=== PATIENT | female | born 1985 | race Caucasian/White ===

== ENCOUNTER 2018-11-11 20:46 | Emergency (ER) | payer OTHER ==
[2018-11-11 20:59] VITALS: BP 123/63; PULSE 71; TEMP 98.3; BMI 48.0
--- NOTE | 2018-11-11 22:07 | PDOC ---
History of Present Illness - General Chief Complaint: Pain, Acute Stated Complaint: PAIN Time Seen by Provider: 11/11/18 21:55 - History of Present Illness Initial Comments: 11/11/18 22:03 33-year-old female without comorbidities presents for evaluation of lower back pain times one week with posterior lateral left leg radicular symptoms no loss of bowel bladder function or systemic symptoms Past History - Past Medical History Allergies/Adverse Reactions: Allergies Allergy/AdvReac Type Severity Reaction Status Date / Time No Known Allergies Allergy Verified 11/11/18 20:59 Home Medications: Ambulatory Orders Cyclobenzaprine HCl [Flexeril 10 mg] 10 mg PO HS PRN #10 tablet 11/11/18 Methylprednisolone [Medrol Dose Vinny] 4 mg PO ASDIR #21 tablet 11/11/18 COPD: No - Suicide/Smoking/Psychosocial Hx Smoking History: Never smoked Review of Systems - Review of Systems Constitutional: No: Fever Musculoskeletal: Yes: Back Pain Neurological: Yes: See HPI *Physical Exam - Vital Signs Last Vital Signs Temp Pulse Resp BP Pulse Ox 98.3 F 71 18 123/63 99 11/11/18 20:55 11/11/18 20:55 11/11/18 20:55 11/11/18 20:55 11/11/18 20:55 - Physical Exam Comments: 11/11/18 22:04 Lumbar spine skin color and temperature are normal range of motion is limited. She has 5 out of 5 strength in bilateral lower extremities without gross sensorimotor deficits. Negative straight leg raise test bilaterally. No midline tenderness moderate right and left-sided paralumbar musculature spasm and tenderness thighs and calves are soft and nontender no gross sensorimotor deficits she is neurovascularly intact. Medical Decision Making - Medical Decision Making 11/11/18 22:04 We'll treat lumbar radicular symptoms with Medrol Dosepak and Flexeril and have her follow-up with orthopedic spine surgery I've explained this to her and she is in agreement with the plan. *DC/Admit/Observation/Transfer Diagnosis at time of Disposition: Lumbar radiculopathy - Discharge Dispostion Disposition: HOME Condition at time of disposition: Stable Decision to Admit order: No - Prescriptions Prescriptions: Cyclobenzaprine HCl [Flexeril 10 mg] 10 mg PO HS PRN #10 tablet PRN Reason: Muscle Spasms Methylprednisolone [Medrol Dose Vinny] 4 mg PO ASDIR #21 tablet - Referrals Referrals: Serg Gallegos MD [Primary Care Provider] - Melhcor Jimenez MD [Staff Physician] - - Patient Instructions Printed Discharge Instructions: Lumbar Radiculopathy, DI for Lumbar Radiculopathy Additional Instructions: Regrese a la yanet de emergencias por empeoramiento de los sntomas. Por favor, comienza el paquete de esteroides maana. No tome ningn antiinflamatorio talisha Advil Motrin Aleve o ibuprofeno mientras est en el paquete de esteroides. Tylenol est preeti y se recomienda segn las indicaciones para medicamentos adicionales para el dolor. Los relajantes musculares yunier tableta antes de acostarse y le darn sueo. Realice un seguimiento con ciruga ortopdica de la columna vertebral en 1-2 presley para yunier evaluacin adicional y opciones de tratamiento, y regrese a la yanet de emergencias si los sntomas empeoran. return to the emergency room for worsening symptoms. Please start the steroid pack tomorrow. Do not take any anti-inflammatory such as Advil Motrin Aleve or ibuprofen while on the steroid pack. Tylenol is okay and recommended as directed for additional pain medication. The muscle relaxers one tablet before bedtime and will make you sleepy. Please follow-up with orthopedic spine surgery in 1-2 days for further evaluation and treatment options and return to the emergency room should symptoms worsen. - Post Discharge Activity
[2018-11-11] MEDS ORDERED: KETOROLAC TROMETHAMINE 60 MG/2 ML VIAL IM ONE (22:44)
[2018-11-11] MEDS ORDERED: KETOROLAC TROMETHAMINE 60 MG/2 ML VIAL ONE (23:01)
== END 2018-11-11 22:11 | disposition home or self-care (01) ==
LOC: JERFT 20:46
PROC: 3E0233Z Introduction of Anti-inflammatory into Muscle, Percutaneous Approach (ICD-10-PCS; principal; 2018-11-11)
DX: M54.16 Radiculopathy, lumbar region (principal)
CPT/HCPCS: 99281-25